=== PATIENT | male | born 1975 | race Caucasian/White ===

== ENCOUNTER → 2016-09-18 | Day surgery (SDC) | payer OTHER ==
[~2016-09-18] VITALS: Ht 182.9 cm; Wt 149.2 kg
[~2016-09-18] MED LIST: PREDNISONE10 MG PO
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
== END ==
LOC: STS 04:07
DX: T87.89 Other complications of amputation stump (principal); Z89.511 Acquired absence of right leg below knee; Z22.322 Carrier or suspected carrier of Methicillin resistant Staphylococcus aureus; M61.59 Other ossification of muscle, multiple sites; I10 Essential (primary) hypertension
CPT/HCPCS: 87070; 87075; 88304; 88307; J0131; J2250; J2405; J3250

== ENCOUNTER → 2016-11-25 | Day surgery (SDC) | payer OTHER ==
[~2016-11-25] VITALS: Ht 182.9 cm; Wt 149.2 kg
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
== END ==
LOC: STS 03:06
DX: T87.81 Dehiscence of amputation stump (principal); Z22.322 Carrier or suspected carrier of Methicillin resistant Staphylococcus aureus; Z86.19 Personal history of other infectious and parasitic diseases; I10 Essential (primary) hypertension; E66.9 Obesity, unspecified
CPT/HCPCS: 87070; 87075; 36415; 88307; J2250